=== PATIENT | male | born 1965 | race Two or more races ===

== ENCOUNTER 2019-06-30 16:46 | Emergency (ER) | payer OTHER ==
[~2019-06-30] VITALS: Ht 167.6 cm; Wt 104.5 kg
[2019-06-30 17:05] VITALS: BP 161/91
[2019-06-30] MEDS ORDERED: ORPHENADRINE CITRATE 60 MG/2 ML VIAL. IM STA (17:15)
[2019-06-30] MEDS ORDERED: IBUP-1027 PO (17:22)
[2019-06-30] MEDS ORDERED: ORPH100T PO (17:22)
--- NOTE | 2019-06-30 17:22 | PHYS DOC ---
Adult General Chief Complaint Chief Complaint: BACK PAIN - NO INJURY [facility] HPI Patient is a 54 year old male who presents with L lower back pain that started one week ago. The patient rates the pain as 5/10 in severity. He reports that before his back started hurting he was having left ankle pain. The patient states that it hurts worse when he tries to get up. He states when he stretches the back it helped fill better. Denies fever or any additional symptoms. Complete ROS were reviewed and found to be within normal limits, except as documented in the HPI Physical Exam Physical Exam Constitutional: Well developed, well nourished, no acute distress, non-toxic appearance. [] HENT: Normocephalic, atraumatic, bilateral external ears normal, oropharynx moist, no oral exudates, nose normal. [] Eyes: PERRLA, EOMI, conjunctiva normal, no discharge. [] Neck: Normal range of motion, no tenderness, supple, no stridor. [] Cardiovascular:Heart rate regular rhythm, no murmur [] Lungs & Thorax: Bilateral breath sounds clear to auscultation [] Back: Tenderness on palpation to Left lower back, no spinal tenderness or stepoffs. Neurologic: Alert and oriented X 3, normal motor function, normal sensory function, no focal deficits noted. [] Psychologic: Affect normal, judgement normal, mood normal. [] EKG EKG [] Radiology/Procedures Radiology/Procedures [] Course & Med Decision Making Course & Med Decision Making Pertinent Labs and Imaging studies reviewed. (See chart for details) Will give Norflex in ER and then will write a prescription for Norflex and Ibuprofen. Discussed using foam roller and Therma Heat at home. Dragon Disclaimer Dragon Disclaimer This electronic medical record was generated, in whole or in part, using a voice recognition dictation system. Departure Departure Impression: Primary Impression: Musculoskeletal back pain Disposition: HOME, SELF-CARE Condition: STABLE Referrals: LISA ANDRADE MD (PCP) Patient Instructions: Musculoskeletal Pain Additional Instructions: Thank you for visiting [facility]. We appreciate you trusting us with your care. If any additional problems come up don't hesitate to return to visit us. Please follow up with your primary care provider so they can plan additional care if needed and know about the problem that you had. If symptoms worsen come back to the Emergency Department. Any concerning symptoms that start such as chest pain, shortness of air, weakness or numbness on one side of the body, running high fevers or any other concerning symptoms return to the ER. Please get ThermaCare heat patches and put on back to see if helps. Use per label instructions. Please also cigar packer and picker a foam roller and try using to see if helps muscle pain. Please fill your medications at any pharmacy and follow the prescription instructions. Be aware that muscle relaxer will make you drowsy do not drive on medication. Scripts Orphenadrine Citrate (ORPHENADRINE CITRATE) 100 Mg Tablet.er 100 MG PO BID PRN for MUSCLE PAIN for 10 Days, #20 TAB.SR Prov: LISA BOSWELL APRN 06/30/19 Ibuprofen (IBUPROFEN) 400 Mg Tablet 400 MG PO PRN Q6HRS PRN for INFLAMMATION, #20 TAB Prov: LISA BOSWELL APRN 06/30/19 LISA BOSWELL APRN Jun 30, 2019 17:22
== END 2019-06-30 17:35 | disposition home or self-care (01) ==
LOC: ER 16:46
DX: M54.5 Low back pain (principal); R10.9 Unspecified abdominal pain
CPT/HCPCS: 96372; 99283; J2360

== ENCOUNTER → 2019-07-25 | Outpatient (CLI) | payer OTHER ==
[2019-06-30 17:05] VITALS: BP 161/91
[~2019-07-25] MED LIST: IBUP-1027 PO; ORPH100T PO
--- NOTE | 2019-07-25 16:21 | KCIC ---
Exam: Left foot 3 views INDICATION: Gouty arthritis, dorsal pain one month TECHNIQUE: Frontal, lateral and oblique views of the left foot Comparisons: None FINDINGS: Bone mineralization is normal. No acute or healed fractures. Soft tissues are unremarkable. Joint spaces are well-maintained. IMPRESSION: No acute osseous abnormality. Electronically signed by: Olivia Macias MD (07/25/2019 4:18 PM) [id number]
== END | disposition home or self-care (01) ==
LOC: KCIC 15:54
PROVIDERS: ATTEND Family Medicine
DX: M10.9 Gout, unspecified (principal)
CPT/HCPCS: 73630